=== PATIENT | male | born 1965 | race Caucasian/White ===

== ENCOUNTER 2016-09-27 16:08 | Inpatient (IN) | payer SELFPAY ==
[~2016-09-27] VITALS: Ht 172.7 cm; Wt 84.9 kg
[~2016-09-27 16:08] MED LIST: ASPIRIN325 MG PO; HTN MED; LYRICA150 MG PO; NO HOME MEDS; TRAMADOL; VENTOLIN HFA18 GM IH
[2016-09-27 18:30] LABS: HEMATOCRIT 37.9 % (38.0-50.0); MCH 33.4 PG (29.0-34.0); MCHC 33.2 G/DL (30.0-36.0); MCV 100.5 FL (86-99); MEAN PLAT.VOLUME 10.6 uM^3 (9.0-12.4); PLATELET COUNT 165 K/uL (156-360); RBC DIS.WIDTH-CV 13.9 % (11.8-14.6); RED BLOOD COUNT 3.77 M/uL (4.00-5.50); WHITE BLOOD COUNT 4.3 K/uL (4.1-10.2)
[2016-09-27 19:37] LABS: CHLORIDE 108 mEq/L (99-109); POTASSIUM 4.8 mEq/L (3.7-5.4); SODIUM 143 mEq/L (136-147)
[2016-09-27 19:40] LABS: GLUCOSE 95 mg/dL (70-99)
[2016-09-27 19:41] LABS: ANION GAP 12 MEQ/L (2-14)
[2016-09-27 19:42] LABS: TOTAL BILIRUBIN 0.4 mg/dL (0.0-1.0)
[2016-09-27 19:43] LABS: ALKALINE PHOSPHATASE 51 IU/L (3-129); GFR ESTIMATE (CALCULATED) > 59 mL/min/; SERUM ETHYL ALCOHOL 328 mg/dL
[2016-09-27 19:45] LABS: UREA NITROGEN (BUN) 10 mg/dL (9-23)
[2016-09-27 20:04] LABS: ADD MIUA? NO; BILIRUBIN NEGATIVE; BLOOD NEGATIVE; COLOR STRAW ((YELLOW)); GLUCOSE (STRIP) NEGATIVE; KETONES NEGATIVE; LEUKOCYTES NEGATIVE; NITRITE NEGATIVE; PROTEIN (STRIP) NEGATIVE; SPECIFIC GRAVITY 1.006 (1.000-1.030); UROBILINOGEN 0.2 MG/DL (0.2-1.0)
[2016-09-28] VITALS (13 sets, daily range): BP systolic 124–186; BP diastolic 60–107
[2016-09-28 02:15] LABS: POINT-OF-CARE METER ID UU13113731
[2016-09-28 03:00] LABS: METH RESISTANT S AUREUS PCR NEGATIVE (NEGATIVE)
[2016-09-28 03:06] LABS: PROBE CHECK PASS; SPECIMEN PROCESSING CONTROL PASS
[2016-09-28 03:45] LABS: POINT-OF-CARE METER ID UU13113731
[2016-09-28 06:27] LABS: HEMATOCRIT 31.8 % (38.0-50.0); MCH 32.2 PG (29.0-34.0); MCHC 31.8 G/DL (30.0-36.0); MCV 101.3 FL (86-99); RBC DIS.WIDTH-CV 14.2 % (11.8-14.6); RBC DIS.WIDTH-SD 53.1 % (39-53); RED BLOOD COUNT 3.14 M/uL (4.00-5.50)
[2016-09-28 06:29] LABS: ANION GAP 13 MEQ/L (2-14); CHLORIDE 111 MEQ/L (99-109); GFR ESTIMATE (CALCULATED) > 59 mL/min/; GLUCOSE 83 mg/dL (70-99); POTASSIUM 4.1 MEQ/L (3.7-5.4); SAMPLE HEMOLYSIS CHECK 0; SAMPLE ICTERIC CHECK 0; SAMPLE LIPEMIA CHECK 0; SODIUM 145 MEQ/L (136-147); UREA NITROGEN (BUN) 10 mg/dL (9-23)
[2016-09-28 06:33] LABS: WHITE BLOOD COUNT 5.6 K/uL (4.1-10.2)
[2016-09-28 06:43] LABS: Estimated Average Glucose 105 mg/dL (70-123); HEMOGLOBIN A1c (GLYCOHEMOGLOB) 5.3 % HGB (Below 5.7)
[2016-09-28 07:26] LABS: MEAN PLAT.VOLUME 9.9 uM^3 (9.0-12.4); PLAT.SUFFICIENCY DECREASED
[2016-09-28 07:31] LABS: PLATELET COUNT 91 K/uL (156-360)
[2016-09-28] MEDS ORDERED: OXYCODONE HCL5 MG PO (10:56)
[2016-09-28 11:27] LABS: MAGNESIUM 1.4 mg/dl (1.3-2.7)
[2016-09-28 12:00] LABS: POINT-OF-CARE METER ID UU13113731
== END 2016-09-28 13:57 | disposition home or self-care (01) | DRG 355 ==
LOC: EME 16:08 → SDC 21:50 → 4WEST 23:45 → 2SOUTH 23:45 → 4WEST 09-28 01:45
PROVIDERS: Physician Assistant; Surgery
PROC: 0WUF0JZ Supplement Abdominal Wall with Synthetic Substitute, Open Approach (ICD-10-PCS; principal; 2016-09-27)
PROC: 0WQF0ZZ Repair Abdominal Wall, Open Approach (ICD-10-PCS; principal; 2016-09-27)
DX: K40.30 Unilateral inguinal hernia, with obstruction, without gangrene, not specified as recurrent (principal); F10.229 Alcohol dependence with intoxication, unspecified; Y90.8 Blood alcohol level of 240 mg/100 ml or more; K57.30 Diverticulosis of large intestine without perforation or abscess without bleeding; K42.9 Umbilical hernia without obstruction or gangrene; J43.9 Emphysema, unspecified; R73.03 Prediabetes; I10 Essential (primary) hypertension; I83.90 Asymptomatic varicose veins of unspecified lower extremity; F17.210 Nicotine dependence, cigarettes, uncomplicated; Z91.19 Patient's noncompliance with other medical treatment and regimen
CPT/HCPCS: 71010; 74176; 80048; 80053; 81003; 82948; 83036; 83735; 85027; 87641; 93005; 94002; 99281; 99285; C1781; G0480; J0690; J1170; J1650; J1815; J2060; J2250; J2405; J2704; J3010; J3411; J3475; J7030; J7120; S0028

== ENCOUNTER 2016-10-16 13:51 | Inpatient (IN) | payer SELFPAY ==
[~2016-10-16] VITALS: Ht 175.3 cm; Wt 79.6 kg
[2016-10-16] VITALS (10 sets, daily range): BP systolic 153–223; BP diastolic 88–150
[~2016-10-16 13:51] MED LIST changes: +OXYCODONE HCL5 MG PO
[2016-10-16 15:03] LABS: BASOPHIL COUNT 0.1 K/uL (0-0.1); EOSINOPHIL (%) 1.3 % (0-5); EOSINOPHIL COUNT 0.1 K/uL (0-0.3); HEMATOCRIT 38.1 % (38.0-50.0); IMMATURE GRANULOCYTE (%) 0.2 % (0.0-0.7); INSTRUMENT ABS NEUTROPHIL CT 2.8 K/uL; LYMPHOCYTE COUNT 0.8 K/uL (1.0-2.8); MCH 32.4 PG (29.0-34.0); MCHC 33.1 G/DL (30.0-36.0); MCV 97.9 FL (86-99); MEAN PLAT.VOLUME 9.6 uM^3 (9.0-12.4); MONOCYTE (%) 17.9 % (3-12); MONOCYTE COUNT 0.8 K/uL (0-0.8); NEUTROPHIL (%) 62.9 % (45-76); NEUTROPHIL COUNT 2.8 K/uL (1.8-6.4); PLATELET COUNT 108 K/uL (156-360); RBC DIS.WIDTH-CV 15.1 % (11.8-14.6); RBC DIS.WIDTH-SD 54.5 % (39-53); RED BLOOD COUNT 3.89 M/uL (4.00-5.50); WHITE BLOOD COUNT 4.5 K/uL (4.1-10.2)
[2016-10-16 15:11] LABS: CHLORIDE 108 mEq/L (99-109); POTASSIUM 4.1 mEq/L (3.7-5.4); SODIUM 146 mEq/L (136-147)
[2016-10-16 15:12] LABS: INTER. NORMALIZED RATIO 1.1; PROTHROMBIN TIME 10.8 (9.2-11.2); PTT 29.5 (25-32)
[2016-10-16 15:13] LABS: GLUCOSE 111 mg/dL (70-99)
[2016-10-16 15:14] LABS: ANION GAP 14 MEQ/L (2-14)
[2016-10-16 15:16] LABS: SERUM ETHYL ALCOHOL 55 mg/dL
[2016-10-16 15:17] LABS: ALKALINE PHOSPHATASE 66 IU/L (3-129); GFR ESTIMATE (CALCULATED) > 59 mL/min/
[2016-10-16 15:18] LABS: UREA NITROGEN (BUN) 11 mg/dL (9-23)
[2016-10-16 15:23] LABS: TROP-I INTERPRETATION NEGATIVE; TROPONIN-I 0.01 ng/mL (0.0-0.30)
[2016-10-16 16:11] LABS: HDL CHOLESTEROL 98 MG/DL (Desirable>=40); LDL CHOLESTEROL 128 mg/dL (Desirable<100); NON-HDL CHOLESTEROL 144 mg/dL (Desirable<160); TOTAL CHOLESTEROL 242 mg/dL (Desirable<200); TRIGLYCERIDES 79 MG/DL (Normal: <150)
[2016-10-16 17:31] LABS: Estimated Average Glucose 103 mg/dL (70-123); HEMOGLOBIN A1c (GLYCOHEMOGLOB) 5.2 % HGB (Below 5.7)
[2016-10-16 20:36] LABS: METH RESISTANT S AUREUS PCR NEGATIVE (NEGATIVE)
[2016-10-16 21:44] LABS: PROBE CHECK PASS; SPECIMEN PROCESSING CONTROL PASS
[2016-10-17] VITALS: BP 130/78
[2016-10-17 00:13] LABS: BICARBONATE 29.7 mEq/L (22-26); CARBOXY HGB 1.8 % (0-5); COMMENTS - BLOOD GASES C+; DEVICE 840; FI02 100 %; MECHANICAL RATE 16 resp/min; METHEMOGLOBIN 1.4 % (0-1.5); MODE AC; PCO2 48 mm Hg (35-45); PEEP 5 CM/H20; PO2 423 mm Hg (80-100); SITE A-LINE; TIDAL VOLUME 450 ML; TOTAL RESP RATE 16 resp/min
[2016-10-17 00:35] VITALS: BP 112/76
[2016-10-17 00:52] LABS: BASE EXCESS 3.1 mEq/L (-3 to +3); CARBOXY HGB 1.9 % (0-5); METHEMOGLOBIN 1.5 % (0-1.5); pH 7.46 (7.35-7.45)
[2016-10-17 00:53] LABS: COMMENTS - BLOOD GASES C+; DEVICE VENT; FI02 40 %; MECHANICAL RATE 20 resp/min; MODE A/C; PCO2 38 mm Hg (35-45); PEEP 5 CM/H20; PO2 59 mm Hg (80-100); SITE RR ALINE; TIDAL VOLUME 450 ML; TOTAL RESP RATE 20 resp/min
[2016-10-17 01:05] VITALS: BP 113/76
== END 2016-10-17 03:10 | disposition short-term general hospital (02) | DRG 64 ==
LOC: EME → EDBD 13:51 → EME 13:51 → EDOF 16:39 → 4WEST 17:51
PROVIDERS: Emergency Medicine; Internal Medicine Pulmonary Disease
DX: I61.8 Other nontraumatic intracerebral hemorrhage (principal); G93.6 Cerebral edema; F10.231 Alcohol dependence with withdrawal delirium; F10.221 Alcohol dependence with intoxication delirium; R57.9 Shock, unspecified; I16.0 Hypertensive urgency; J45.909 Unspecified asthma, uncomplicated; E11.9 Type 2 diabetes mellitus without complications; D69.59 Other secondary thrombocytopenia; Y90.2 Blood alcohol level of 40-59 mg/100 ml; F17.210 Nicotine dependence, cigarettes, uncomplicated; H53.8 Other visual disturbances; Z91.19 Patient's noncompliance with other medical treatment and regimen
CPT/HCPCS: 36600; 36620; 70450; 71010; 80053; 80061; 81003; 82803; 83036; 84484; 85025; 85610; 85730; 87070; 87205; 87641; 93005; 94002; 99281; 99285; G0480; J0360; J1165; J2060; J2405; J2704; J7050

== ENCOUNTER 2017-12-04 15:29 | Observation (INO) | payer OTHER ==
[~2017-12-04] VITALS: Ht 182.9 cm; Wt 94.9 kg
[2017-12-04 17:24] LABS: ALBUMIN 3.7 g/dL (3.2-4.8); CHLORIDE 107 mEq/L (99-109); POTASSIUM 4.1 mEq/L (3.7-5.4); SODIUM 143 mEq/L (136-147)
[2017-12-04 17:27] LABS: GLUCOSE 102 mg/dL (70-99); TOTAL PROTEIN 6.5 g/dL (6.4-8.3)
[2017-12-04 17:29] LABS: TOTAL BILIRUBIN 0.5 mg/dL (0.0-1.0)
[2017-12-04 17:30] LABS: ALKALINE PHOSPHATASE 66 IU/L (3-129); SERUM ETHYL ALCOHOL < 10 mg/dL
[2017-12-04 17:31] LABS: CREATININE 0.9 mg/dL (0.6-1.3); GFR ESTIMATE (CALCULATED) > 59 mL/min/ (58.99-99999)
[2017-12-04 17:32] LABS: AST (GOT) 35 IU/L (2-34); UREA NITROGEN (BUN) 28 mg/dL (9-23)
[2017-12-04 17:32] LABS: BASOPHIL (%) 0.8 % (0-1); EOSINOPHIL (%) 0.3 % (0-5); HEMATOCRIT 33.8 % (38.0-50.0); HEMOGLOBIN 11.4 G/DL (12.5-16.6); IMMATURE GRANULOCYTE (%) 0.5 % (0.0-0.7); LYMPHOCYTE (%) 19.2 % (15-42); LYMPHOCYTE COUNT 0.8 K/uL (1.0-2.8); MCHC 33.7 G/DL (30.0-36.0); MCV 88.9 FL (86-99); MONOCYTE (%) 24.5 % (3-12); NEUTROPHIL (%) 54.7 % (45-76); NEUTROPHIL COUNT 2.2 K/uL (1.8-6.4); PLATELET COUNT 116 K/uL (156-360); RBC DIS.WIDTH-CV 13.8 % (11.8-14.6); RBC DIS.WIDTH-SD 45.2 % (39-53)
[2017-12-04 17:34] LABS: ALT (GPT) 29 IU/L (3-49); CREATINE KINASE 393 IU/L (1-294); TOTAL CK 393 IU/L (1-294)
[2017-12-04 17:36] LABS: TROP-I INTERPRETATION NEGATIVE; TROPONIN-I < 0.01 ng/mL (0.0-0.30)
[2017-12-04 17:39] LABS: CK-MB 1.7 ng/mL (0.0-4.9); CKMB RELATIVE INDEX 0.4 (0.0-3.9)
[2017-12-04 17:48] LABS: APPEARANCE CLEAR ((CLEAR)); BILIRUBIN NEGATIVE; BLOOD NEGATIVE; COLOR YELLOW ((YELLOW)); GLUCOSE (STRIP) NEGATIVE; KETONES 20; LEUKOCYTES TRACE; NITRITE NEGATIVE; PROTEIN (STRIP) NEGATIVE; SPECIFIC GRAVITY 1.017 (1.000-1.030)
[2017-12-04 17:52] LABS: BACTERIA NONE SEEN /HPF; EPITHELIAL CELLS NONE SEEN /HPF; MUCUS TRACE /LPF; RED BLOOD CELLS 0-5 /HPF (0-5); UCUL ADDED? YES
[2017-12-04 17:53] LABS: AMPHETAMINE NEGATIVE (500 ng/mL); BARBITURATES NEGATIVE (200 ng/mL); BENZODIAZEPINES NEGATIVE (150 ng/mL); BUPRENORPHINE NEGATIVE (10 ng/mL); COCAINE NEGATIVE (150 ng/mL); METHADONE NEGATIVE (200 ng/mL); METHAMPHETAMINE NEGATIVE (500 ng/mL); OPIATES (MORPHINE) PRESUMPTIVE POSITIVE (100 ng/mL); OXYCODONE NEGATIVE (100 ng/mL); PHENCYCLIDINE NEGATIVE (25 ng/mL); PROPOXYPHENE NEGATIVE (300 ng/mL); THC CANNABINOIDS PRESUMPTIVE POSITIVE (50 ng/mL); TRICYCLIC ANTIDEPRESSANTS NEGATIVE (300 ng/mL)
[2017-12-05 00:29] VITALS: BP 160/81
[2017-12-05 01:06] LABS: VALPROIC ACID (DEPAKOTE) 37.9 MCG/ML (50-100)
[2017-12-05 06:48] LABS: HEMOGLOBIN 10.5 G/DL (12.5-16.6); MCH 29.3 PG (29.0-34.0); MCHC 32.8 G/DL (30.0-36.0); MCV 89.4 FL (86-99); PLATELET COUNT 115 K/uL (156-360); RBC DIS.WIDTH-CV 13.9 % (11.8-14.6); RBC DIS.WIDTH-SD 45.5 % (39-53); RED BLOOD COUNT 3.58 M/uL (4.00-5.50); WHITE BLOOD COUNT 4.9 K/uL (4.1-10.2)
[2017-12-05 07:43] LABS: ALBUMIN 3.4 G/DL (3.2-4.8); ALKALINE PHOSPHATASE 56 IU/L (3-129); ALT (GPT) 23 IU/L (3-49); AST (GOT) 30 IU/L (2-34); CHLORIDE 112 MEQ/L (99-109); CREATININE 0.9 MG/DL (0.6-1.3); GFR ESTIMATE (CALCULATED) > 59 mL/min/ (58.99-99999); GLUCOSE 100 mg/dL (70-99); POTASSIUM 3.9 MEQ/L (3.7-5.4); SODIUM 146 MEQ/L (136-147); TOTAL BILIRUBIN 0.5 MG/DL (0.0-1.0); TOTAL PROTEIN 5.6 G/DL (6.4-8.3); UREA NITROGEN (BUN) 28 mg/dL (9-23)
[2017-12-05 08:05] VITALS: BP 173/88
[2017-12-05] MEDS ORDERED: CITALOPRAM HBR20 MG PO (11:23)
[2017-12-05] MEDS ORDERED: COREG12.5 M1 PO (11:24)
[2017-12-05 11:26] VITALS: BP 138/88
[2017-12-05] MEDS ORDERED: DULOXETINE HCL60 MG PO (11:26)
[2017-12-05] MEDS ORDERED: LISINOPRIL5 MG PO (11:27)
[2017-12-05] MEDS ORDERED: LYRICA75 MG PO (11:27)
[2017-12-05] MEDS ORDERED: FERROUS SULFAT325 MG PO (11:27)
[2017-12-05] MEDS ORDERED: LASIX40 MG PO (11:27)
[2017-12-05] MEDS ORDERED: MULTIVITAMIN1 EAC2 PO (11:35)
[2017-12-05] MEDS ORDERED: DEPAKOTE SPRIN125 MG PO (11:35)
[2017-12-05] MEDS ORDERED: ROXICODONE5 MG PO ×2 (11:36→11:37)
[2017-12-05] MEDS ORDERED: TYLENOL REGULA325 MG PO (11:37)
[2017-12-05] MEDS ORDERED: ZANTAC150 MG PO (11:37)
[2017-12-05] MEDS ORDERED: TERAZOSIN HCL1 MG PO (11:37)
[2017-12-05 20:38] VITALS: BP 138/82
[2017-12-06 00:08] VITALS: BP 125/76
[2017-12-06 04:08] VITALS: BP 114/76
[2017-12-06 11:08] VITALS: BP 118/65
[2017-12-06 11:12] VITALS: BP 140/65
[2017-12-06 15:28] VITALS: BP 116/70
[2017-12-07 09:00] VITALS: BP 132/82
== END 2017-12-07 14:12 ==
LOC: EME 15:29 → 4SOUTH 21:55 → EDOF 21:55 → 4SOUTH 22:39 → EDOF 22:39 → ENRESERV 22:40 → 4SOUTH 12-05 00:09
PROVIDERS: Emergency Medicine; Physician Assistant
DX: F11.23 Opioid dependence with withdrawal (principal); I69.351 Hemiplegia and hemiparesis following cerebral infarction affecting right dominant side; F01.51 Vascular dementia, unspecified severity, with behavioral disturbance; R09.02 Hypoxemia; I10 Essential (primary) hypertension; G89.4 Chronic pain syndrome; F32.9 Major depressive disorder, single episode, unspecified; F41.9 Anxiety disorder, unspecified; R82.90 Unspecified abnormal findings in urine; F10.11 Alcohol abuse, in remission; J45.909 Unspecified asthma, uncomplicated; R73.03 Prediabetes; F17.200 Nicotine dependence, unspecified, uncomplicated
CPT/HCPCS: 70450; 71045; 80053; 80164; 81003; 82550; 82553; 83735; 83880; 84484; 84999; 85025; 85027; 87077; 87086; 87186; 93005; 99281; 99285; G0378; G0480; G8978 CL; G8979 GP CK; J0696; J1650; J1885; J2060; J2270; J7030; J7050; Q0177